=== PATIENT | male | born 2005 | race Hispanic/Latino ===

== ENCOUNTER 2024-02-08 15:10 | Emergency (ER) | payer SELFPAY ==
[2024-02-08] MEDS ORDERED: Lidocaine 1% w/Epinephrine 1:100K 20 ML VIAL ONE (16:03)
[2024-02-08] MEDS ORDERED: Bacitracin 1 PK ONE (16:54)
== END 2024-02-08 17:20 | disposition home or self-care (01) ==
LOC: ERS 15:10
DX: S51.812A Laceration without foreign body of left forearm, initial encounter (principal); W26.8XXA Contact with other sharp object(s), not elsewhere classified, initial encounter
CPT/HCPCS: 99282

== ENCOUNTER 2024-02-22 15:27 | Emergency (ER) | payer SELFPAY | END 2024-02-22 15:40 | disposition home or self-care (01) | LOC: ERS 15:27 | DX: S51.812D Laceration without foreign body of left forearm, subsequent encounter (principal) ==